=== PATIENT | female | born 1995 | race Caucasian/White ===

== ENCOUNTER 2016-11-08 04:11 | Emergency (ER) | payer BC, OTHER ==
[~2016-11-08] VITALS: Ht 160 cm; Wt 87.5 kg
[2016-11-08 04:11] VITALS: BP 123/62
== END 2016-11-08 04:25 | disposition home or self-care (01) ==
LOC: ER 04:11
DX: F41.0 Panic disorder [episodic paroxysmal anxiety] (principal); J45.909 Unspecified asthma, uncomplicated; F17.200 Nicotine dependence, unspecified, uncomplicated; Z88.0 Allergy status to penicillin; Z53.21 Procedure and treatment not carried out due to patient leaving prior to being seen by health care provider

== ENCOUNTER 2017-12-28 07:29 | Emergency (ER) | payer OTHER, BC ==
[~2017-12-28] VITALS: Ht 154.9 cm; Wt 86.2 kg
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
[2017-12-28] MEDS ORDERED: CYCL-331 PO (08:30)
[2017-12-28] MEDS ORDERED: NAPR-683 PO (08:30)
[2017-12-28 09:00] VITALS: BP 135/81
== END 2017-12-28 09:10 | disposition home or self-care (01) ==
LOC: ER 07:29
DX: S86.912A Strain of unspecified muscle(s) and tendon(s) at lower leg level, left leg, initial encounter (principal); S39.012A Strain of muscle, fascia and tendon of lower back, initial encounter; F41.9 Anxiety disorder, unspecified; J45.909 Unspecified asthma, uncomplicated; Z88.0 Allergy status to penicillin; V40.5XXA Car driver injured in collision with pedestrian or animal in traffic accident, initial encounter; Y93.I9 Activity, other involving external motion; Y99.8 Other external cause status; Y92.488 Other paved roadways as the place of occurrence of the external cause
CPT/HCPCS: 72100; 73562; 99284

== ENCOUNTER → 2021-04-12 | Outpatient (CLI) | payer OTHER ==
[~2021-04-12] MED LIST: CYCL10TA19 PO; NAPR-683 PO
--- NOTE | 2021-04-12 13:54 | RAD ---
EXAM: Maxillofacial bone CT without contrast. HISTORY: Sinusitis. TECHNIQUE: Computed tomographic images of the maxillofacial bones were obtained without contrast. *One or more of the following individualized dose reduction techniques were utilized for this examina tion: 1. Automated exposure control. 2. Adjustment of the mA and/or kV according to patient size. 3. Use of iterative reconstruction technique. COMPARISON: None. FINDINGS: There is mild left frontal, bilateral ethmoid, bilateral maxillary and sphenoid sinus mucos al thickening. There are tiny right maxillary sinus mucous tension cyst. The right frontal sinus is n ot pneumatized, a normal variant. There is no significant nasal septal deviation. The osteomeatal uni ts are patent. There is no sinus wall erosion or thickening. The orbits and mastoid air cells are unr emarkable. There is slight decreased size of the right mandibular condyle likely due to bony remodeli ng in the setting of osteoarthritis. The visualized portions of the brain and calvarium are unremarka ble. IMPRESSION: 1. Mild paranasal sinus disease, described above. There is no paranasal sinus air-fluid level or sinu s opacification to suggest acute sinusitis. 2. Right temporomandibular joint osteoarthritis. Electronically signed by: Stefany España MD (04/12/2021 1:51 PM) [id number]
== END ==
LOC: CT 13:14
PROVIDERS: ATTEND Family Medicine
DX: J32.9 Chronic sinusitis, unspecified (principal); J34.89 Other specified disorders of nose and nasal sinuses; J34.1 Cyst and mucocele of nose and nasal sinus; M26.641 Arthritis of right temporomandibular joint
CPT/HCPCS: 70486